=== PATIENT | male | born 1955 | race Caucasian/White ===

== ENCOUNTER 2018-04-06 05:13 | Emergency (ER) | payer SELFPAY ==
--- NOTE | 2018-04-06 05:57 | PDOC ---
History of Present Illness - General Chief Complaint: Pain, Acute Stated Complaint: ABD PAIN Time Seen by Provider: 04/06/18 05:56 Past History - Past Medical History Allergies/Adverse Reactions: Allergies Allergy/AdvReac Type Severity Reaction Status Date / Time No Known Allergies Allergy Verified 04/06/18 05:30
--- NOTE | 2018-04-06 06:01 | PDOC ---
Attending Attestation - Resident Resident Name: Zakia Linton - ED Attending Attestation I have performed the following: I have examined & evaluated the patient, The case was reviewed & discussed with the resident, I agree w/resident's findings & plan - HPI HPI: 04/06/18 06:25 RUQ pain. Pt had cholecystectomy 1 yr ago. - Physicial Exam PE: 04/06/18 06:26 Agree with residente exam. - Medical Decision Making 04/06/18 06:25 r/o choledocholithiasis. 04/06/18 19:38 signed out to the day ER team to follow and dispo
[2018-04-06] MEDS ORDERED: SODIUM CHLORIDE FOR INHALATION 3 ML VIAL.NEB IH ONE (06:18)
[2018-04-06 06:41] LABS: BASO % 0.6 % (0-2.0); EOS % 4.6 % (0-4.5); HEMATOCRIT 47.2 % (35.4-49); HEMOGLOBIN 16.2 GM/dL (11.7-16.9); LYMPH % 21.7 % (8-40); MCH 30.7 pg (25.7-33.7); MCHC 34.3 g/dl (32.0-35.9); MEAN CELL VOLUME 89.6 fl (80-96); MONO % 8.9 % (3.8-10.2); NEUT % 64.2 % (42.8-82.8); PLATELET COUNT 219 K/MM3 (134-434); RBC 5.26 M/mm3 (4.00-5.60); RDW 14.1 % (11.9-15.9); WHITE BLOOD COUNT 7.5 K/mm3 (4.0-10.0)
[2018-04-06 07:04] LABS: INR 1.04 (0.83-1.09); PROTHROMBIN TIME (PATIENT) 12.3 SEC (9.7-13.0)
--- NOTE | 2018-04-06 07:12 | PDOC ---
*Physical Exam - Physical Exam Comments: 04/06/18 11:58 patient states that he has been having RUQ pain since yesterday, the pain is very mild at rest but becomes sharp when he moves his torso. pain is nonradiating. He has had a URI for the past week and has been coughing. He denies n/v/d/c, f/c, cp, sob, dysuria, has a good appetite. Abd us shows a normal size CBD and fatty liver ED Treatment Course - LABORATORY CBC & Chemistry Diagram: 04/06/18 06:15 04/06/18 06:15 - ADDITIONAL ORDERS Additional order review: Laboratory Results 04/06/18 06:15 PT with INR 12.30 INR 1.04 04/06/18 06:15 RBC 5.26 MCV 89.6 MCHC 34.3 RDW 14.1 MPV 9.0 Neutrophils % 64.2 Lymphocytes % 21.7 Monocytes % 8.9 Eosinophils % 4.6 H Basophils % 0.6 - Medications Given in the ED: ED Medications Discontinued Medications Generic Name Dose Route Start Last Admin Trade Name [facility] PRN Reason Stop Dose Admin Sodium Chloride 3 ml 04/06/18 06:18 04/06/18 06:27 Normal Saline For Inhalation - IH 04/06/18 06:19 3 ml ONCE ONE Administration Progress Note - Progress Note Progress Note: clinical picture most consistent with musculoskeletal RUQ pain. gave patient IV toradol 30 mg, his pain disappeared. Will PO trial and dc home with one week supply of motrin and flexeril. *DC/Admit/Observation/Transfer Diagnosis at time of Disposition: Muscle spasm - Discharge Dispostion Disposition: HOME Condition at time of disposition: Good Decision to Admit order: No - Prescriptions Prescriptions: Cyclobenzaprine HCl [Flexeril -] 10 mg PO TID #21 tablet Ibuprofen [Motrin -] 400 mg PO TID #21 tablet - Referrals Referrals: ON STAFF,NOT [Primary Care Provider] - - Patient Instructions Additional Instructions: Your pain was caused by muscle spasm. please take motrin three times a day if it still hurts. we also prescribed fexeril, which is a muscle relaxant to take up to three times a day but be aware that it can make you sleepy so do not drive a car or operate machinery while taking it. WE sent both prescriptions to your pharmacy. Follow up with your primary doctor in a few days. Return to ER if severe symptoms return Print Language: SPA - Post Discharge Activity
[2018-04-06 08:01] VITALS: BMI 42.3
[2018-04-06 08:19] LABS: ALBUMIN 3.6 g/dl (3.4-5.0); ALK PHOS 90 U/L (45-117); ANION GAP 5 MMOL/L (8-16); BILIRUBIN,DIRECT 0.1 mg/dL (0.0-0.2); BILIRUBIN,TOTAL 0.7 mg/dL (0.2-1); BLOOD UREA NITROGEN 16 mg/dL (7-18); CHLORIDE 105 mmol/L (98-107); CO2 26 mmol/L (21-32); CREATININE 0.9 mg/dL (0.55-1.3); GLUCOSE,RANDOM 105 mg/dL (74-106); LIPASE 183 U/L (73-393); POTASSIUM 4.9 mmol/L (3.5-5.1); SGOT/AST 31 U/L (15-37); SGPT/ALT 52 U/L (13-61); SODIUM 136 mmol/L (136-145); TOT PROT 7.4 g/dl (6.4-8.2); TRIGLYCERIDES 183 mg/dL (0-150)
[2018-04-06] MEDS ORDERED: KETOROLAC TROMETHAMINE 30 MG/1 ML VIAL IVPUSH ONE (10:42)
[2018-04-06] MEDS ORDERED: KETOROLAC TROMETHAMINE 30 MG/1 ML VIAL ONE (10:50)
[2018-04-06 11:43] VITALS: TEMP 98.6
[2018-04-06 12:36] VITALS: BP 140/80; PULSE 72
== END 2018-04-06 12:36 | disposition home or self-care (01) ==
LOC: JER 05:13
PROC: 3E0F7GC Introduction of Other Therapeutic Substance into Respiratory Tract, Via Natural or Artificial Opening (ICD-10-PCS; principal; 2018-04-06)
PROC: 3E0333Z Introduction of Anti-inflammatory into Peripheral Vein, Percutaneous Approach (ICD-10-PCS; 2018-04-06)
DX: M62.838 Other muscle spasm (principal)
CPT/HCPCS: 36415; 71046-TC-FY; 76705-TC; 80053; 82248; 83605; 83690; 84478; 85025; 85610; 99283-25